=== PATIENT | female | born 1955 | race Caucasian/White ===

== ENCOUNTER 2018-07-28 05:34 | Inpatient (IN) | END 2018-07-29 12:10 | disposition home or self-care (01) | DRG 483 ==

== ENCOUNTER 2018-10-22 09:32 | Inpatient (IN) | payer OTHER ==
[2018-10-19 11:25] VITALS: BMI 25.0
[2018-10-22] VITALS (22 sets, daily range): BP systolic 101–156; BP diastolic 55–93; PULSE 83–107; RESP 17–23; Ht 165.1 cm; Wt 73.3 kg
[~2018-10-22] VITALS: Ht 165.1 cm; Wt 73.3 kg
--- NOTE | 2018-10-22 05:42 | HPN ---
Date/Time of Note Date/Time of Note DATE: 10/22/18 TIME: 05:42 Interval H&P Admission Note Pt. seen H&P reviewed: No system changes ISACC RAMIREZ MD Oct 22, 2018 05:42
--- NOTE | 2018-10-22 05:45 | OPR ---
Date/Time of Note Date/Time of Note DATE: 10/22/18 TIME: 05:42 Operative Report Procedure Date: Oct 22, 2018 Preoperative Diagnosis Left shoulder rotator cuff tear arthropathy Postoperative Diagnosis 1. Left shoulder secondary glenohumeral arthritis 2. Left shoulder acromioclavicular joint arthritis 3. Left shoulder massive, unrepairable rotator cuff tear Operation/Procedure Performed 1. Left reverse total shoulder arthroplasty 2. Left open distal clavicle excision 3. Left shoulder injection of PRP solution Surgeon see signature line Second Officer Alex Adams PA-C Anesthesia Type: general Estimated Blood Loss: 100 - 150 ml's Transfusion none Specimen None Grafts/Implants See operative note Complications none Pt Condition Post Procedure: stable Disposition: PACU Procedure Description EVALUATION ADVISOR SURGEON: Alex Adams PA-C was asked to be present for this case at my request. Assistance was necessary as a result of the highly technical nature of this operation. When performing an open total shoulder replacement, it is critical to have a trained post production assistant who is an expert in handling the extremity and assisting the surgeon in tasks such as manipulation of the arm, protection of the neurovascular structures and positioning the implants. This assistance cannot be performed by a administrative support technician, as it is considered an integral part of the procedure and the post production assistant should be compensated for their time. PROCEDURE IN DETAIL: Following the administration of general anesthesia supplemented with a peripheral nerve block for postoperative pain control, the patient was examined under anesthesia. The antecubital fossa was then prepped and 60 cc of blood were aspirated. The blood was then subsequently given to the sales account representative from the company to prepare the PRP solution. Examination of the left shoulder revealed very significant stiffness including a forward flexion of about 80 degrees abduction 60 degrees maximal external rotation 45 degrees with severe crepitus. There was anteroposterior escape of the humeral head, also. The patient was then placed in the beach chair position. Sterile prep and drape was then undertaken. An extended deltopectoral incision was then carried through the interval exposing the conjoined tendon and retracting it medially in order to expose the glenohumeral joint. The superior aspect of the joint was then evaluated. Significant osteophytes were noted in the acromioclavicular joint. The acromioclavicular joint capsule was then entered and the distal clavicle skeletonized for a distance of 10 mm. Severe arthritic changes were noted. An osteotome was then used to resect 10 mm of the distal clavicle. Good decompression was confirmed. The AC joint was irrigated and closed using a #2 interrupted suture. The subscapularis was noted to be partially disrupted superiorly. Severe arthritic changes were noted with very large peripheral osteophytes. The superior rotator cuff was torn and retracted. The biceps tendon was significantly hypertrophic and partially torn. The intra-articular portion was excised and the distal aspect tenodesed to the bicipital groove more distally below the prosthetic component. A humeral head osteotomy was then created in the appropriate degree of version and inclination. The humerus was retracted and the glenoid was exposed. Peripheral osteophytes were removed and a complete capsulectomy performed. The central canal of the glenoid was then entered and prepared for a standard Depuy baseplate. A standard Depuy baseplate was then applied with four peripheral screws and solid fixation. A 38 mm glenosphere was then applied, with solid fixation. The humerus was then reamed and prepared for a 12 mm humeral component with a standard metaphyseal component along with a 6 mm liner. The humeral canal was irrigated and the PRP solution was implanted within the humeral canal. The actual components were implanted with solid fixation. The arm was taken through full range of motion with no evident instability. The joint was then thoroughly irrigated, the deep tissues were approximated using #1 suture followed by closure of the deep layer using 2-0 Monocryl. The skin was closed using 4-0 Monocryl suture, and a Prenio dressing. An Ultrasling was then applied. The patient was awakened and transported to the recovery room in stable condition. Estimated blood loss for this procedure was 150 cc. Radiographs will be obtained in the recovery room. ISACC RAMIREZ MD Oct 22, 2018 05:45
--- NOTE | 2018-10-22 05:47 | PDOCDIS ---
Discharge Instructions DIAGNOSIS Discharge Diagnosis Rotator cuff tear arthropathy CONDITION [id number] Patient Condition: [id number] Good HOME CARE INSTRUCTIONS: [id number] Diet Instructions: [id number] Regular ACTIVITY: [id number] Activity Restrictions: [id number] Slowly Increase Activity Keep Limb Elevated [id number] Bathing Restrictions: [id number] Shower FOLLOW UP/APPOINTMENTS Follow-up Plan 2 weeks in the office SCHOOL/WORK RELEASE May return to School/Work with: With Restrictions School/Work Release Comment: 5 pound tabletop usage for 6 weeks ISACC RAMIREZ MD Oct 22, 2018 05:46
[~2018-10-22 09:32] MED LIST: ALBU18HF INHALATION; CALC500T11 PO; CHOL100062 PO; DESFLURANE 15 MIN ONE; DICL50TA11 PO; GLYCOPYRROLATE 0.4 MG INJ ONE; HC.5O30 TOP; METOCLOPRAMIDE 10 MG INJ ONE; NEOSTIGMINE 3 MG/3 ML SYRINGE ONE; PROM6.2515 PO; TRANEXAMIC ACID 1GM/100ML(PMX) 100 ML IVPB SCH
[2018-10-22] MEDS ORDERED: DEXAMETHASONE 1 MG TAB PO SCH (10:00)
[2018-10-22] MEDS ORDERED: GABAPENTIN 300 MG CAP PO SCH ×2 (10:00→21:00)
[2018-10-22] MEDS ORDERED: CEFAZOLIN 2 GM/50 ML (PMX) 50 ML IVPB SCH (10:00)
[2018-10-22] MEDS ORDERED: BUPIVACAINE 0.5% (SDV) 30 ML, morphine SULFATE (PF) 8 MG, EPINEPHrine 0.3 MG, KETOROLAC... IRR SCH ×7 (10:00)
[2018-10-22] MEDS ORDERED: FENTAnyl 50 MCG/ML VIAL ONE (10:17)
[2018-10-22] MEDS ORDERED: LIDOCAINE 2% (SDV) 5 ML INJ ONE (10:18)
[2018-10-22] MEDS ORDERED: MIDAZOLAM 1 MG/ML 2 ML INJ ONE (10:18)
[2018-10-22] MEDS ORDERED: PROPOFOL 20 ML ONE (10:18)
[2018-10-22] MEDS ORDERED: ONDANSETRON 4 MG INJ ONE (10:20)
--- NOTE | 2018-10-22 10:25 | PREAC ---
Date/Time of Note Date/Time of Note DATE: 10/22/18 TIME: 10:24 Anesthesia Eval and Record Evaluation Time Pre-Procedure Interview DATE: 10/22/18 TIME: 10:24 Age 63 Sex female NPO: 8 hrs Preoperative diagnosis L shoulder damage Planned procedure L total reverse shoulder replacement Past Medical History Past Medical History: Includes Cardio: Dyslipidemia Pulm: Asthma Neuro: Peripheral neuropathy Musculoskeletal: Osteoarthritis Surgery & Anesthesia Issues No known issue Meds Anticoagulation: No Beta Nam within 24 hr: No Reason Beta Nam not given: Pt. not on B-Nam Reported Medications Albuterol Sulfate* (Ventolin HFA*) 18 Gm Hfa.aer.ad, 2 PUFF INHALATION Q4H, #1 INHALER 07/28/18 Cholecalciferol* (Vitamin D3*) 1,000 Unit Tablet, 2000 UNIT PO DAILY, TAB 07/28/18 Calcium Carbonate (Oysco-500) 500 Mg Tablet, 500 MG PO BID, TAB 07/28/18 Diclofenac Sodium* (Diclofenac Sodium*) 50 Mg Tablet.dr, 50 MG PO BID, #60 TAB 07/28/18 Discontinued Reported Medications Hydrocortisone* Topical (Hydrocortisone* Topical) Unknown Strength Oint, TOP QID PRN for SKIN CONDITION, TUB 10/19/18 Promethazine Hcl* (Promethazine Hcl* Syrup) Unknown Strength Syrup, PO Q6H PRN for COUGH, ML 10/19/18 Current Medications Cefazolin Sodium/ Dextrose 50 ml @ 100 mls/hr PRE-OP IVPB ; Start 10/22/18 at 10:00; Stop 10/22/18 at 17:00 Tranexamic Acid 100 ml @ 200 mls/hr Pre-op IVPB ; Start 10/22/18 at 09:00; Stop 10/22/18 at 16:00 Bupivacaine HCl/ Morphine Sulfate/ Epinephrine/ Ketorolac Tromethamine/ Clonidine/Sodium Chloride/ Vancomycin HCl INTRA-OP IRR ; Start 10/22/18 at 10:00; Stop 10/22/18 at 17:00 Dexamethasone (Decadron) 2 mg PREOP PO ; Start 10/22/18 at 10:00; Stop 10/22/18 at 16:00 Gabapentin (Neurontin) 300 mg ONCE PO ; Start 10/22/18 at 10:00; Stop 10/22/18 at 16:00 Meds reviewed: Yes Allergies Coded Allergies: No Known Allergy (Unverified , 10/22/18) Allergies Reviewed: Yes Labs/Studies Labs Reviewed: Reviewed by anesthesiologist test: Negative Studies: ECG, CXR Pre-procedure Exam Airway: Adequate mouth opening, Adequate thyromental dist Mallampati: Mallampati III Teeth: Normal Lung: Normal Heart: Normal ASA Physical Status ASA physical status: 2 Emergency: None Planned Anesthetic General/MAC: ETT Planned Pain Management Single shot nerve block, Parenteral pain med, Local by surgeon Pre-operative Attestations Prior to commencing anesthesia and surgery, the patient was re-evaluated, there was verification of: *The patient's identity *The results of appropriate recent lab work and preoperative vital signs *The above evaluation not changing prior to induction *Anesthetic plan, risk benefits, alternative and complications discussed with patient/family; questions answered; patient/family understands, accepts and wishes to proceed. OLIVIA SALGADO MD Oct 22, 2018 10:25
[2018-10-22] MEDS ORDERED: LABETALOL HCL 20MG INJ IV PRN (10:30)
[2018-10-22] MEDS ORDERED: MEPERIDINE 25 MG INJ IV PRN (10:30)
[2018-10-22] MEDS ORDERED: ONDANSETRON 4 MG INJ IV PRN ×2 (10:30→14:00)
[2018-10-22] MEDS ORDERED: DIPHENHYDRAMINE 50 MG INJ IV PRN ×2 (10:30→14:00)
[2018-10-22] MEDS ORDERED: IPRATROPIUM (NEB) 0.5 MG/2.5 ML AMP HHN PRN (10:30)
[2018-10-22] MEDS ORDERED: FENTAnyl 50 MCG/ML VIAL IV PRN ×2 (10:30)
[2018-10-22] MEDS ORDERED: hydrALAzine 20 MG INJ IV PRN (10:30)
[2018-10-22] MEDS ORDERED: HYDROmorphONE 1 MG/5 ML IV SYRINGE IV PRN ×3 (10:30)
[2018-10-22] MEDS ORDERED: LEVALBUTEROL (NEB) 1.25 MG/0.5 ML AMP HHN PRN (10:30)
[2018-10-22] MEDS ORDERED: MIDAZOLAM 1 MG/ML 2 ML INJ IV PRN (10:30)
[2018-10-22] MEDS ORDERED: PROVENTIL HFA 6.7GM INHALER INH SCH (11:00)
[2018-10-22] MEDS ORDERED: ROPIVACAINE 0.5 % 30 ML VIAL ONE (12:00)
[2018-10-22] MEDS ORDERED: CA CHLORIDE (GM) 10% 10 ML INJ ONE (12:32)
[2018-10-22] MEDS ORDERED: POLYMYXIN/BACITRACIN 1L IRRIG ONE (12:32)
[2018-10-22] MEDS ORDERED: THROMBIN 5000 UNIT VIAL ONE (12:32)
[2018-10-22] MEDS ORDERED: EPHEDrine 50 MG INJ ONE (13:00)
[2018-10-22] MEDS ORDERED: TRANEXAMIC ACID 1GM/100ML(PMX) 100 ML IVPB ONE (14:00)
[2018-10-22] MEDS ORDERED: KETOROLAC 15 MG INJ IV PRN (14:00)
[2018-10-22] MEDS ORDERED: NACL 0.9% 3 ML SYG IV SCH (14:00)
[2018-10-22] MEDS ORDERED: ZOLPIDEM 5 MG TAB PO PRN (14:00)
[2018-10-22] MEDS ORDERED: LOPERAMIDE 2 MG CAP PO PRN (14:00)
[2018-10-22] MEDS ORDERED: oxyCODONE 5 MG TAB PO PRN ×3 (14:00)
[2018-10-22] MEDS ORDERED: HYDROmorphONE 1 MG/ML SYG IV PRN (14:00)
[2018-10-22] MEDS ORDERED: MAGNESIUM HYDROXIDE 30ML CUP PO PRN (14:00)
[2018-10-22] MEDS: CEFAZOLIN 1 GM/50 ML (PMX) 50 ML IVPB SCH ×2 (14:33→21:40)
--- NOTE | 2018-10-22 16:39 | CONS ---
Assessment/Plan Assessment/Plan Hospital Course (Demo Recall) 63 yo F with PMH osteoarthritis and mitral valve prolapse presented to [facility] for elective total left shoulder replacement. Medicine consultation placed for evaluate of chest discomfort Assessment/Plan (Daily) 1. Acute chest discomfort - rule out ACS - sounds more musculoskeletal related given history of recent surgery - Will check serial troponins, ECHO, and EKG. If any abnormalities will consult cardiology for further evaluation - nitro PRN for chest pain 2. Left shoulder arthritis s/p total shoulder replacement - management per Primary - pain control 3. h/o mitral valve prolapse - stable Thank you for allowing me to participate in the care of your patient. please call with any questions. Consultation Date/Type/Reason Admit Date/Time Oct 22, 2018 at 09:32 Date of Consultation: Oct 22, 2018 Type of Consult Internal medicine Reason for Consultation Chest pain Date/Time of Note DATE: 10/22/18 TIME: 16:39 Hx of Present Illness 63 yo F with PMH osteoarthritis and mitral valve prolapse presented to [facility] for elective total left shoulder replacement. Following surgical intervention, which was uneventful, patient was complaining of sternal chest pressure that she described as heavy with episodes of sensation of muscle spasms. She has lingering shortness of breath as well since recently had bronchitis. Patient denies any dizziness, nausea, vomiting, abdominal issues, LOC, or palpitations. She states the pain keeps changing and feels similar to when she had her right shoulder repair performed. Patients vitals remain stable and appears comfortable during interview. All 12 systems reviewed and pertinent positives as per HPI. All others negative. Constitutional: No chills, No disoriented Eyes: No discharge ENT: No congestion Cardiovascular: chest pain; No lightheadedness, No palpitations Gastrointestinal: No pain, No constipation, No diarrhea, No nausea, No vomiting Genitourinary: no complaints Musculoskeletal: bone/joint pain Skin: No bruising, No laceration, No rash Neurologic: No confusion, No dizziness, No focal-weakness, No headache, No syncope Endocrine: no complaints Lymphatic: no complaints Psychological: nl mood/affect Immunologic: no complaints Past Medical History Medical History: other (mitral valve prolapse) Home Meds Reported Medications Albuterol Sulfate* (Ventolin HFA*) 18 Gm Hfa.aer.ad, 2 PUFF INHALATION Q4H, #1 INHALER 07/28/18 Cholecalciferol* (Vitamin D3*) 1,000 Unit Tablet, 2000 UNIT PO DAILY, TAB 07/28/18 Calcium Carbonate (Oysco-500) 500 Mg Tablet, 500 MG PO BID, TAB 07/28/18 Diclofenac Sodium* (Diclofenac Sodium*) 50 Mg Tablet.dr, 50 MG PO BID, #60 TAB 07/28/18 Discontinued Reported Medications Hydrocortisone* Topical (Hydrocortisone* Topical) Unknown Strength Oint, TOP QID PRN for SKIN CONDITION, TUB 10/19/18 Promethazine Hcl* (Promethazine Hcl* Syrup) Unknown Strength Syrup, PO Q6H PRN for COUGH, ML 10/19/18 Medications Current Medications Cefazolin Sodium/ Dextrose 50 ml @ 100 mls/hr PRE-OP IVPB ; Start 10/22/18 at 10:00; Stop 10/22/18 at 17:00 Bupivacaine HCl/ Morphine Sulfate/ Epinephrine/ Ketorolac Tromethamine/ Clonidine/Sodium Chloride/ Vancomycin HCl INTRA-OP IRR ; Start 10/22/18 at 10:00; Stop 10/22/18 at 17:00 Cefazolin Sodium 50 ml @ 100 mls/hr Q8H IVPB Last administered on 10/22/18at 14:33; Admin Dose 100 MLS/HR; Start 10/22/18 at 14:00; Stop 10/23/18 at 06:29 Senna/Docusate Sodium (Senokot-S) 1 tab BID PO ; Start 10/22/18 at 21:00 Simethicone (Mylicon) 80 mg TID PRN PO .GAS; Start 10/22/18 at 14:00 Magnesium Hydroxide (Milk Of Mag) 30 ml BID PRN PO .CONSTIPATION; Start 10/22/18 at 14:00 Loperamide HCl (Imodium Cap) 2 mg Q6H PRN PO .DIARRHEA; Start 10/22/18 at 14:00 Dexamethasone (Decadron) 2 mg Q6 PO ; Start 10/22/18 at 18:00; Stop 10/23/18 at 12:01 Gabapentin (Neurontin) 300 mg HS PO ; Start 10/22/18 at 21:00 Acetaminophen (Tylenol Tab) 500 mg Q6 PO ; Start 10/22/18 at 18:00 Oxycodone HCl (Roxicodone) 15 mg Q4H PRN PO .PAIN; Start 10/22/18 at 14:00 Oxycodone HCl (Roxicodone) 10 mg Q4H PRN PO .PAIN; Start 10/22/18 at 14:00 Oxycodone HCl (Roxicodone) 5 mg Q4H PRN PO .PAIN; Start 10/22/18 at 14:00 Hydromorphone HCl (Dilaudid) 1 mg Q4H PRN IV .BREAKTHROUGH PAIN; Start 10/22/18 at 14:00 Ketorolac Tromethamine (Toradol) 15 mg Q6H PRN IV .PAIN; Start 10/22/18 at 14: 00 Ondansetron HCl (Zofran Inj) 4 mg Q6H PRN IV NAUSEA/VOMITING; Start 10/22/18 at 14:00 Diphenhydramine HCl (Benadryl) 25 mg Q6H PRN IV .PRURITUS; Start 10/22/18 at 14:00 Zolpidem Tartrate (Ambien) 10 mg HS PRN PO .INSOMNIA; Start 10/22/18 at 14:00 IV Flush (NS 3 ml) 3 ml per protocol IV ; Start 10/22/18 at 14:00 Allergies: Coded Allergies: No Known Allergy (Unverified , 10/22/18) Past Surgical History Past Surgical Hx: other (hysterectomy, right shoulder repair, total left shoulder replacement) Family History Significant Family History: no pertinent family hx Social History Alcohol Use: none Smoking Status: Former smoker Drug Use: none Exam/Review of Systems Exam Vitals Vital Signs Date Temp Pulse Resp B/P (MAP) Pulse Ox O2 O2 Flow FiO2 Time Delivery Rate 10/22/18 Nasal 2.0 15:11 Cannula 10/22/18 97 21 129/79 96 14:52 (96) 10/22/18 98.2 14:02 Exam General: Patient is a pleasant female, no acute distress HEENT: Atraumatic, normocephalic. The pupils are equal, round and reactive. Extraocular motor are intact Neck: Supple with full range of motion. No rigidity or meningismus Chest: mildly tender Lungs: Clear to auscultation bilaterally no crackles rales or wheezing Heart: Normal S1-S2, Regular rate and rhythm. no murmurs Abdomen: Soft , nontender, nondistended , bowel sounds are present. No guarding no rebound tenderness , No masses or organomegaly. No costovertebral temporal angle mass Extremities: left arm in sling, moving fingers without issues Neurologic: Normal mental status, speech normal, cranial nerves II through XII are intact, motor and sensory are intact, Imaging Imaging PROCEDURE: XR left shoulder. CLINICAL INDICATION: Postop TECHNIQUE: AP view of the left shoulder performed. COMPARISON: DR TORRES 07/28/2018 FINDINGS: Left shoulder reverse total arthroplasty appears intact and properly positioned. Expected postsurgical soft tissue swelling and air. IMPRESSION: Expected postoperative appearance of left shoulder reverse total arthroplasty. RPTAT:AAJJ Hayes Buchanan Physician Date Time Electronically viewed and signed by Hayes Buchanan Physician on 10/22/2018 14:13 Medications Medication Current Medications Cefazolin Sodium/ Dextrose 50 ml @ 100 mls/hr PRE-OP IVPB ; Start 10/22/18 at 10:00; Stop 10/22/18 at 17:00 Bupivacaine HCl/ Morphine Sulfate/ Epinephrine/ Ketorolac Tromethamine/ Clonidine/Sodium Chloride/ Vancomycin HCl INTRA-OP IRR ; Start 10/22/18 at 10:00; Stop 10/22/18 at 17:00 Cefazolin Sodium 50 ml @ 100 mls/hr Q8H IVPB Last administered on 10/22/18at 14:33; Admin Dose 100 MLS/HR; Start 10/22/18 at 14:00; Stop 10/23/18 at 06:29 Senna/Docusate Sodium (Senokot-S) 1 tab BID PO ; Start 10/22/18 at 21:00 Simethicone (Mylicon) 80 mg TID PRN PO .GAS; Start 10/22/18 at 14:00 Magnesium Hydroxide (Milk Of Mag) 30 ml BID PRN PO .CONSTIPATION; Start 10/22/18 at 14:00 Loperamide HCl (Imodium Cap) 2 mg Q6H PRN PO .DIARRHEA; Start 10/22/18 at 14:00 Dexamethasone (Decadron) 2 mg Q6 PO ; Start 10/22/18 at 18:00; Stop 10/23/18 at 12:01 Gabapentin (Neurontin) 300 mg HS PO ; Start 10/22/18 at 21:00 Acetaminophen (Tylenol Tab) 500 mg Q6 PO ; Start 10/22/18 at 18:00 Oxycodone HCl (Roxicodone) 15 mg Q4H PRN PO .PAIN; Start 10/22/18 at 14:00 Oxycodone HCl (Roxicodone) 10 mg Q4H PRN PO .PAIN; Start 10/22/18 at 14:00 Oxycodone HCl (Roxicodone) 5 mg Q4H PRN PO .PAIN; Start 10/22/18 at 14:00 Hydromorphone HCl (Dilaudid) 1 mg Q4H PRN IV .BREAKTHROUGH PAIN; Start 10/22/18 at 14:00 Ketorolac Tromethamine (Toradol) 15 mg Q6H PRN IV .PAIN; Start 10/22/18 at 14:00 Ondansetron HCl (Zofran Inj) 4 mg Q6H PRN IV NAUSEA/VOMITING; Start 10/22/18 at 14:00 Diphenhydramine HCl (Benadryl) 25 mg Q6H PRN IV .PRURITUS; Start 10/22/18 at 14:00 Zolpidem Tartrate (Ambien) 10 mg HS PRN PO .INSOMNIA; Start 10/22/18 at 14:00 IV Flush (NS 3 ml) 3 ml per protocol IV ; Start 10/22/18 at 14:00 GRISELDA WILLINGHAM MD Oct 22, 2018 16:39
[2018-10-22] MEDS ORDERED: NITROGLYCERIN (SL) 0.4 MG TAB SL PRN (17:00)
[2018-10-22] MEDS: DEXAMETHASONE 2 MG TAB PO SCH ×2 (18:13→23:52)
[2018-10-22] MEDS: ACETAMINOPHEN 500 MG TAB PO SCH ×2 (18:13→23:52)
[2018-10-22] MEDS: SENNA/DOCUSATE NA (8.6MG/50MG) TAB PO SCH (20:39)
--- NOTE | 2018-10-22 23:42 | PAC ---
Date/Time of Note Date/Time of Note DATE: 10/22/18 TIME: 23:42 Post-Anesthesia Notes Post-Anesthesia Note Last documented vital signs Vital Signs Date Temp Pulse Resp B/P (MAP) Pulse Ox O2 O2 Flow FiO2 Time Delivery Rate 10/22/18 Nasal 2.0 22:09 Cannula 10/22/18 100 18 121/71 99 18:00 (88) 10/22/18 98.3 15:15 Activity: WNL Respiratory function: WNL Cardiovascular function: WNL Mental status: Baseline Pain reasonably controlled: Yes Hydration appropriate: Yes Nausea/Vomiting absent: Yes OLIVIA SALGADO MD Oct 22, 2018 23:42
[2018-10-23 00:15] VITALS: BP 115/58; PULSE 110; RESP 20
--- NOTE | 2018-10-23 04:36 | PN ---
Date/Time of Note Date/Time of Note DATE: 10/23/18 TIME: 04:36 Subjective Doing well this morning. Symptoms have resolved from last night. Objective Vitals Vital Signs Date Temp Pulse Resp B/P (MAP) Pulse Ox O2 O2 Flow FiO2 Time Delivery Rate 10/23/18 98.5 110 20 115/58 92 Nasal 2.0 00:15 (77) Cannula Intake and Output 10/22/18 10/22/18 10/23/18 1515:00 23:00 07:00 IntakeIntake Total 1750 ml 50 ml OutputOutput Total 50 ml BalanceBalance 1700 ml 50 ml Wound clean and dry. Neurologically intact. No signs of DVT. Results Result Diagram: 10/22/18173610/22/181736 Medications Medications Current Medications Cefazolin Sodium 50 ml @ 100 mls/hr Q8H IVPB Last administered on 10/22/18at 21:40; Admin Dose 100 MLS/HR; Start 10/22/18 at 14:00; Stop 10/23/18 at 06:29 Senna/Docusate Sodium (Senokot-S) 1 tab BID PO Last administered on 10/22/18at 20:39; Admin Dose 1 TAB; Start 10/22/18 at 21:00 Simethicone (Mylicon) 80 mg TID PRN PO .GAS; Start 10/22/18 at 14:00 Magnesium Hydroxide (Milk Of Mag) 30 ml BID PRN PO .CONSTIPATION; Start 10/22/18 at 14:00 Loperamide HCl (Imodium Cap) 2 mg Q6H PRN PO .DIARRHEA; Start 10/22/18 at 14:00 Dexamethasone (Decadron) 2 mg Q6 PO Last administered on 10/22/18at 23:52; Admin Dose 2 MG; Start 10/22/18 at 18:00; Stop 10/23/18 at 12:01 Gabapentin (Neurontin) 300 mg HS PO Last administered on 10/22/18at 20:39; Admin Dose 300 MG; Start 10/22/18 at 21:00 Acetaminophen (Tylenol Tab) 500 mg Q6 PO Last administered on 10/22/18at 23:52; Admin Dose 500 MG; Start 10/22/18 at 18:00 Oxycodone HCl (Roxicodone) 15 mg Q4H PRN PO .PAIN; Start 10/22/18 at 14:00 Oxycodone HCl (Roxicodone) 10 mg Q4H PRN PO .PAIN; Start 10/22/18 at 14:00 Oxycodone HCl (Roxicodone) 5 mg Q4H PRN PO .PAIN; Start 10/22/18 at 14:00 Hydromorphone HCl (Dilaudid) 1 mg Q4H PRN IV .BREAKTHROUGH PAIN Last administered on 10/23/18at 04:05; Admin Dose 1 MG; Start 10/22/18 at 14:00 Ketorolac Tromethamine (Toradol) 15 mg Q6H PRN IV .PAIN; Start 10/22/18 at 14:00 Ondansetron HCl (Zofran Inj) 4 mg Q6H PRN IV NAUSEA/VOMITING; Start 10/22/18 at 14:00 Diphenhydramine HCl (Benadryl) 25 mg Q6H PRN IV .PRURITUS; Start 10/22/18 at 14:00 Zolpidem Tartrate (Ambien) 10 mg HS PRN PO .INSOMNIA; Start 10/22/18 at 14:00 IV Flush (NS 3 ml) 3 ml per protocol IV ; Start 10/22/18 at 14:00 Nitroglycerin (Nitroglycerin (Sl Tab) 0.4 Mg) 1 tab Q5M PRN SL ANGINA; Start 10/22/18 at 17:00 VTE Prophylaxis Risk score (from Ns)>0 risk: 9 SCD applied (from Ns): Yes Lines/Catheters IV Catheter Type: Saline Lock Moore in Place: No Assessment/Plan Assessment/Plan Assessment: Status post total shoulder Plan: Begin PT this morning discharge after ISACC RAMIREZ MD Oct 23, 2018 04:36
--- NOTE | 2018-10-23 04:37 | DS ---
Date/Time of Note Date/Time of Note DATE: 10/23/18 TIME: 04:37 Discharge Summary Admission/Discharge Info Admit Date/Time Oct 22, 2018 at 09:32 Discharge Date/Time 10/23/2018 Discharge Diagnosis Rotator cuff tear arthropathy Patient Condition: Good Hospital Course Admitted and underwent uncomplicated procedure. Postop day 1 discharge after PT Home Meds Reported Medications Albuterol Sulfate* (Ventolin HFA*) 18 Gm Hfa.aer.ad, 2 PUFF INHALATION Q4H, #1 INHALER 07/28/18 Cholecalciferol* (Vitamin D3*) 1,000 Unit Tablet, 2000 UNIT PO DAILY, TAB 07/28/18 Calcium Carbonate (Oysco-500) 500 Mg Tablet, 500 MG PO BID, TAB 07/28/18 Diclofenac Sodium* (Diclofenac Sodium*) 50 Mg Tablet.dr, 50 MG PO BID, #60 TAB 07/28/18 Discontinued Reported Medications Hydrocortisone* Topical (Hydrocortisone* Topical) Unknown Strength Oint, TOP QID PRN for SKIN CONDITION, TUB 10/19/18 Promethazine Hcl* (Promethazine Hcl* Syrup) Unknown Strength Syrup, PO Q6H PRN for COUGH, ML 10/19/18 Follow-up Plan 2 weeks in the office Primary Care Provider Not On Staff Doctor Pending Labs Laboratory Tests Test 10/22/18 17:24 10/22/18 17:37 10/23/18 00:29 Creatine Kinase 321 IU/L (23-200) 454 IU/L (23-200) Creatine Kinase 2.0 1.0 Index Creatinine Kinase 6.39 4.67 MB (Mass) ng/ml (0.0-2.4) ng/ml (0.0-2.4) Troponin I < 0.012 < 0.012 ng/ml (0.000-0.120) ng/ml (0.000-0.120 ) White Blood Count 12.2 10^3/ul (4.8-10.8) Red Blood Count 3.80 10^6/ul (4.20-5.40 ) Hemoglobin 10.8 g/dl (12.0-16.0) Hematocrit 34.2 % (37.0-47.0) Mean Corpuscular 90.0 Volume fl (82.0-101.0) Mean Corpuscular 28.4 Hemoglobin pg (29.0-33.0) Mean Corpuscular 31.6 Hemoglobin Concent g/dl (32.0-37.0) Red Cell 13.8 % (11.5-14.5) Distribution Width Platelet Count 233 10^3/UL (140-415) Mean Platelet 11.0 fl (7.4-10.4) Volume Immature 0.400 Granulocytes % % (0.001-0.429) Neutrophils % 84.7 % (39.0-77.0) Lymphocytes % 8.9 % (15.0-51.0) Monocytes % 5.5 % (0.0-11.0) Eosinophils % 0.1 % (0.0-7.0) Basophils % 0.4 % (0.0-2.0) Nucleated Red Blood 0.0 Cells % /100WBC (0.0-0.0) Immature 0.050 Granulocytes # 10^3/ul (0.0-0.031 ) Neutrophils # 10.3 10^3/ul (1.6-7.5) Lymphocytes # 1.1 10^3/ul (0.8-2.9) Monocytes # 0.7 10^3/ul (0.3-0.9) Eosinophils # 0.0 10^3/ul (0.0-0.5) Basophils # 0.1 10^3/ul (0.0-0.1) Nucleated Red Blood 0.0 Cells # 10^3/ul (0.0-0.0) Sodium Level 136 mmol/L (135-144) Potassium Level 4.3 mmol/L (3.5-5.1) Chloride Level 107 mmol/L (97-110) Carbon Dioxide 26 mmol/L (21-31) Level Anion Gap 3 (5-13) Blood Urea 15 mg/dl (7-20) Nitrogen Creatinine 0.69 mg/dl (0.44-1.00) Glucose Level 87 mg/dl (70-220) Calcium Level 8.4 mg/dl (8.4-10.2) Phosphorus Level 3.7 mg/dl (2.5-4.9) Magnesium Level 1.7 mg/dl (1.7-2.5) Albumin 3.2 g/dl (3.3-4.9) ISACC RAMIREZ MD Oct 23, 2018 04:37
[2018-10-23] MEDS: CEFAZOLIN 1 GM/50 ML (PMX) 50 ML IVPB SCH (05:16)
[2018-10-23] MEDS: DEXAMETHASONE 2 MG TAB PO SCH ×2 (05:17→12:05)
[2018-10-23] MEDS: ACETAMINOPHEN 500 MG TAB PO SCH ×2 (05:17→12:05)
[2018-10-23 08:02] VITALS: BP 105/61; PULSE 99; RESP 18
[2018-10-23] MEDS: SENNA/DOCUSATE NA (8.6MG/50MG) TAB PO SCH (09:11)
--- NOTE | 2018-10-23 12:14 | RADRPT ---
Echocardiogram Report Patient Name: DAVE BUIPatient ID: [id number] : 1955 (63y 5m)Study Date: 10/23/2018 10:10:53 AM Gender: FAccession #: [id number] Tech: Location: [facility] Ref.Physician: GRISELDA WILLINGHAM Height(Cm): BSA: Weight(Kg): Quality: AdequateAccount #: Procedures: Echocardiographic Report: Transthoracic echocardiogram with complete 2D, M-Mode, and doppler examination. Indications: Chest Pain, and History of Mitral Valve Prolapse. Measurements: 2D/M Mode Doppler Measurement Value Normal Range Measurement Value Normal Range LVIDd 2D 4.1 [ 3.8 - 5.2 ] cm AV Mean Salazar 1.2 [ 70.0 - 90.0 ] cm/sec LVIDs 2D 3.1 [ 2.2 - 3.5 ] cm AV Mean PG 7.0 [ 2.0 - 4.0 ] mmHg LVPWd 2D 0.8 [ 0.6 - 0.9 ] cm AV Peak Salazar 1.9 [ 100.0 - 170.0 ] cm/se c IVSd 2D 1.0 [ 0.6 - 0.9 ] cm AV Peak PG 14.0 [ 2.0 - 9.0 ] mmHg AoR Diam 2D 2.7 [ 2.3 - 3.1 ] cm AV VTI 30.5 cm EDV 2D 73.4 [ 46.0 - 106.0 ] ml LVOT Mean Salazar 1.0 [ 60.0 - 80.0 ] cm/sec ESV 2D 36.7 [ 14.0 - 42.0 ] ml LVOT Mean PG 4.0 [ 1.0 - 3.0 ] mmHg EF 2D 50.0 [ 54.0 - 74.0 ] percent LVOT Peak Salazar 1.4 [ 70.0 - 110.0 ] cm/sec LA Dimen 2D 3.4 [ 2.7 - 3.8 ] cm LVOT Peak PG 8.0 [ 2.0 - 6.0 ] mmHg LVOT VTI 23.9 [ 20.0 - 30.0 ] cm MV E Peak Salazar 0.7 [ 60.0 - 130.0 ] cm/sec MV A Peak Salazar 1.1 [ 100.0 - 120.0 ] cm/se c MV E/A 0.6 [ 0.8 - 1.5 ] ratio MV PHT 97.0 [ 20.0 - 100.0 ] msec MV Decel Time 331 [ 104 - 258 ] msec MV Decel Sterling 2 Lat E` Salazar 0.1 [ 10.0 - 15.0 ] cm/sec Lateral E/E` 6.5 [ 1.0 - 2.0 ] ratio Med E` Salazar 0.1 cm/sec MV E/A 0.6 [ 0.8 - 1.5 ] ratio MVA PHT 2.3 [ 2.0 - 4.0 ] cm2 TR Peak Salazar 2.9 [ 100.0 - 280.0 ] cm/se c TR Peak PG 33.0 mmHg RVSP 41.0 [ 10.0 - 36.0 ] mmHg RA Pressure 8.0 mmHg Findings: Left Ventricle: Normal left ventricular systolic function. Normal left ventricular cavity size. Normal left ventricular wall thickness. Ejection fraction is visually estimated at >60 %. Tissue Doppler/Mitral Doppler indices are consistent with impaired relaxation (Stage I diastolic dysfunction). Right Ventricle: Normal right ventricular size. Normal right ventricular systolic function. Left Atrium: There is mild enlargement of left atrium. Right Atrium: There is mild enlargement of right atrium. Mitral Valve: Normal appearance of the mitral valve. Trace mitral regurgitation. Aortic Valve: Normal appearance of the aortic valve. No significant aortic stenosis or insufficiency. Tricuspid Valve: Normal appearance and function of the tricuspid valve with trace physiologic regurgitation. Estimated peak PA systolic pressure 36 mmHg. There is trace tricuspid regurgitation. Pulmonic Valve: Normal pulmonic valve appearance. Pericardium: Normal pericardium with no significant pericardial effusion. Aorta: Normal aortic root. IVC: Normal size and normal respiratory collapse consistent with normal right atrial pressure. Normal size and no respiratory collapse consistent with elevated right atrial pressure. Conclusions: Normal left ventricular systolic function. Normal left ventricular cavity size. Normal left ventricular wall thickness. Ejection fraction is visually estimated at >60 %. Tissue Doppler/Mitral Doppler indices are consistent with impaired relaxation (Stage I diastolic dysfunction). No significant valvular stenosis or regurgitation seen. Estimated peak PA systolic pressure 36 mmHg based on RA pressure of 3 mmHg. Electronically Signed By: Dl Conner 2018-10-23 12:14:05 PST
--- NOTE | 2018-10-23 15:33 | CONS ---
Assessment/Plan Assessment/Plan Hospital Course (Demo Recall) 63 yo F with PMH osteoarthritis and mitral valve prolapse presented to [facility] for elective total left shoulder replacement. Medicine consultation placed for evaluate of chest discomfort Assessment/Plan (Daily) 1. Acute chest discomfort- resolved - serial trops negative and EKG negative for acute ST changes - refused ECHO - nitro PRN for chest pain 2. 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 h/o mitral valve prolapse - stable 4. Disposition - medically stable for discharge home when cleared by primary Consultation Date/Type/Reason Admit Date/Time Oct 22, 2018 at 09:32 Initial Consult Date 10/22/18 Type of Consult Internal medicine Date/Time of Note DATE: 10/23/18 TIME: 15:23 24 HR Interval Summary Free Text/Dictation Patients chest discomfort resolved this am. She refused ECHO given she had one recently and was worried she would be charged again. Exam/Review of Systems Exam Vitals Vital Signs Date Temp Pulse Resp B/P (MAP) Pulse Ox O2 O2 Flow FiO2 Time Delivery Rate 10/23/18 98.3 99 18 105/61 97 Nasal 08:02 (76) Cannula 10/23/18 2.0 00:15 Intake and Output 10/22/18 10/22/18 10/23/18 1515:00 23:00 07:00 IntakeIntake Total 1750 ml 100 ml 50 ml OutputOutput Total 50 ml 500 ml BalanceBalance 1700 ml 100 ml -450 ml Exam General: Patient is a pleasant female, no acute distress Neck: Supple Lungs: Clear to auscultation bilaterally no crackles rales or wheezing Heart: Normal S1-S2, Regular rate and rhythm. no murmurs Abdomen: Soft , nontender, nondistended , bowel sounds are present. Extremities: left arm in sling, moving fingers without issues Results Result Diagram: 10/22/18 1737 10/22/18 1737 Results 24hrs Laboratory Tests Test 10/22/18 17:24 10/22/18 17:37 10/23/18 00:29 10/23/18 04:30 Creatine Kinase 321 H 454 H 471 H Creatine Kinase 2.0 1.0 1.0 Index Creatinine Kinase 6.39 H 4.67 H 4.61 H MB (Mass) Troponin I < 0.012 < 0.012 < 0.012 White Blood Count 12.2 H Red Blood Count 3.80 L Hemoglobin 10.8 L Hematocrit 34.2 L Mean Corpuscular 90.0 Volume Mean Corpuscular 28.4 L Hemoglobin Mean Corpuscular 31.6 L Hemoglobin Concent Red Cell 13.8 Distribution Width Platelet Count 233 Mean Platelet 11.0 H Volume Immature 0.400 Granulocytes % Neutrophils % 84.7 H Lymphocytes % 8.9 L Monocytes % 5.5 Eosinophils % 0.1 Basophils % 0.4 Nucleated Red 0.0 Blood Cells % Immature 0.050 H Granulocytes # Neutrophils # 10.3 H Lymphocytes # 1.1 Monocytes # 0.7 Eosinophils # 0.0 Basophils # 0.1 Nucleated Red 0.0 Blood Cells # Sodium Level 136 Potassium Level 4.3 Chloride Level 107 Carbon Dioxide 26 Level Anion Gap 3 L Blood Urea 15 Nitrogen Creatinine 0.69 Glucose Level 87 Calcium Level 8.4 Phosphorus Level 3.7 Magnesium Level 1.7 Albumin 3.2 L Test 10/23/18 07:08 Lab Scanned Report REFERENCE LAB GRISELDA WILLINGHAM MD Oct 23, 2018 15:33
== END 2018-10-23 14:15 | disposition home or self-care (01) | DRG 483 ==
LOC: REC 09:32 → EDSTATUS 13:00 → MS1 15:11
PROVIDERS: ADMIT Orthopaedic Surgery; ATTEND Orthopaedic Surgery
PROC: 0LS40ZZ Reposition Left Upper Arm Tendon, Open Approach (ICD-10-PCS; 2018-10-22)
PROC: 0RRK00Z Replacement of Left Shoulder Joint with Reverse Ball and Socket Synthetic Substitute, Open Approach (ICD-10-PCS; principal; 2018-10-22 12:00)
DX: M19.012 Primary osteoarthritis, left shoulder (principal); M75.102 Unspecified rotator cuff tear or rupture of left shoulder, not specified as traumatic; E78.5 Hyperlipidemia, unspecified; G62.9 Polyneuropathy, unspecified; R07.89 Other chest pain
CPT/HCPCS: 73030; 80069; 82550; 82553; 83735; 84484; 85025; 86999; 88304; 88311; 93005; 93306; 97161; C1776; J0171; J0690; J0735; J1170; J1885; J2250; J2274; J2405; J2710; J2765; J2795; J3010; J3370